=== PATIENT | male | born 1960 | race Caucasian/White ===

== ENCOUNTER 2016-07-01 11:17 | Outpatient (CLI) | payer OTHER ==
[2016-07-01 11:37] LABS: BASOPHILS # (AUTO) 0.1 K/uL (0-0.2); BASOPHILS % (AUTO) 1.4 % (0.0-3.0); EOSINOPHILS # (AUTO) 0.3 K/ul (0.0-0.7); EOSINOPHILS % (AUTO) 3.8 % (0.0-7.0); HEMATOCRIT 40.9 % (42.0-52.0); HEMOGLOBIN 13.7 g/dl (14.0-18.0); IMMATURE GRANULOCYTE % (AUTO) 0.4 % (0.0-5.0); LYMPHOCYTES # (AUTO) 3.2 K/uL (0.60-3.4); LYMPHOCYTES % (AUTO) 40.2 (10.0-50.0); MEAN CORPUSCULAR HEMOGLOBIN 30.6 pg (27.0-31.0); MEAN CORPUSCULAR HGB CONC 33.5 (31.8-35.4); MEAN CORPUSCULAR VOLUME 91.3 fl (80.0-94.0); MONOCYTES # (AUTO) 0.7 K/uL (0.4-2.0); MONOCYTES % (AUTO) 9.2 (0-10); NEUTROPHILS # (AUTO) 3.6 K/ul (2.0-6.9); PLATELET COUNT 235 10^3/uL (140-440); RED BLOOD COUNT 4.48 10^6/ul (4.70-6.10); WHITE BLOOD COUNT 7.92 K/ul (4.2-10.2)
[2016-07-01 11:38] LABS: BILIRUBIN,URINE Negative (NEGATIVE); KETONES,URINE Negative (NEGATIVE); LEUKOCYTE ESTERASE ,URINE Negative (NEGATIVE); NITRITE,URINE Negative (NEGATIVE); PROTEIN,URINE Negative (NEGATIVE); URINE, BLOOD Negative (NEGATIVE)
[2016-07-01 11:39] LABS: ADD URINE MICROSCOPIC NO
--- NOTE | 2016-07-01 12:02 | DI ---
EXAM: Two views of the chest. History: Chest pain. Comparison: Chest radiograph 08/14/2014 Findings: Heart size is normal. No focal consolidation. No appreciable pleural fluid and no pneum othorax. No acute osseous abnormalities. Impression: No acute cardiopulmonary process.
[2016-07-01 12:34] LABS: ALBUMIN 4.1 g/dL (3.4-5.0); ALBUMIN/GLOBULIN RATIO 1.11; BILIRUBIN,DIRECT 0.25 mg/dL (0.00-0.30); BILIRUBIN,TOTAL 0.6 mg/dL (0.00-1.20); BUN/CREATININE RATIO 9.9; CALCIUM 9.3 mg/dL (8.2-10.2); CHOL/HDL RATIO 4.3 (4.5-6.4); CREATININE 1.01 mg/dL (0.60-1.10); TOTAL PROTEIN 7.8 g/dL (6.4-8.2)
== END 2016-07-01 11:18 | disposition home or self-care (01) ==
LOC: LAB 11:17
PROVIDERS: ATTEND Nurse Practitioner
DX: R73.09 Other abnormal glucose (principal); R07.9 Chest pain, unspecified; E55.9 Vitamin D deficiency, unspecified; E78.2 Mixed hyperlipidemia; F32.9 Major depressive disorder, single episode, unspecified; I10 Essential (primary) hypertension; M25.551 Pain in right hip; M51.9 Unspecified thoracic, thoracolumbar and lumbosacral intervertebral disc disorder; M87.059 Idiopathic aseptic necrosis of unspecified femur
CPT/HCPCS: 36415; 80053; 80061; 81001; 82248; 82306; 83036; 84100; 84443; 85025

== ENCOUNTER 2017-08-06 08:46 | Outpatient (CLI) | payer OTHER | END 2017-08-06 08:47 | disposition home or self-care (01) | LOC: LAB 08:46 | PROVIDERS: ATTEND Nurse Practitioner | DX: E55.9 Vitamin D deficiency, unspecified (principal); E78.2 Mixed hyperlipidemia; I10 Essential (primary) hypertension; M25.551 Pain in right hip; M47.27 Other spondylosis with radiculopathy, lumbosacral region; R53.83 Other fatigue; Z12.5 Encounter for screening for malignant neoplasm of prostate; F17.210 Nicotine dependence, cigarettes, uncomplicated; Z23 Encounter for immunization | CPT/HCPCS: 36415; 80053; 80061; 81001; 85025 ==

== ENCOUNTER 2018-07-05 10:20 | Outpatient (CLI) | payer OTHER ==
--- NOTE | 2018-07-05 13:05 | DI ---
Exam: Three views of the lumbar spine. Comparison: 07/27/2013. Reason for exam: Lumbar disc displacement. FINDINGS: Similar appearing grade 1 anterior listhesis L3 on L4 not significantly changed from previ ous imaging. No new vertebral body height loss is seen. There is preservation of the lumbar lordoti c curve. Impression: No acute fracture is seen within the lumbar spine. Similar appearing grade 1 anterior listhesis of L3 on L4 not significantly changed from previous imag ing
--- NOTE | 2018-07-06 12:20 | MRI ---
EXAM: Lumbar spine MRI without contrast. HISTORY: Lumbar disc displacement. Degenerative disc disease. COMPARISON: Lumbar spine radiographs 07/05/2098 lumbar spine MRI 06/14/2013. TECHNIQUE: Multiplanar, multisequence MR images were acquired of the lumbar spine without contrast. FINDINGS: Five non-rib bearing lumbar vertebra are present. Conus medullaris ends at L1-2 and is no rmal morphology, signal intensity. There is minor lumbar dextroscoliosis centered at L3-4 and there is 3 mm degenerative anterolisthesis of L3 on L4 and mild disc space narrowing L3-4 and L5-S1. The l umbar vertebra are normal in height and intrinsic bone marrow signal. Small ventral osteophytes are present at L3-4 and there is disc desiccation at L3-4 and mild disc space narrowing at L3-4 and mild disc space narrowing disc desiccation at L5-S1. The partially visualized liver, spleen and kidneys are unremarkable. There are no paravertebral mass es. L1-2: There is a minimal probably physiologic disc bulge with endplate osteophytes that minimally na rrows the inferior neural foraminal bilaterally. There is no central canal stenosis. L2-3: There is a mild disc bulge that is asymmetric to the right and mild bilateral hypertrophic fac et arthropathy and ligamentum flavum hypertrophy. This causes mild bilateral foraminal stenosis. Th ere is no central canal stenosis. L3-4: There is anterolisthesis of L3 on L4 and there is a mild disc bulge/pseudo disc bulge that is asymmetric to the right with right lateral endplate osteophytes. Moderate left and moderately severe right hypertrophic facet arthropathy and ligamentum flavum hypertrophy and a small right facet effus ion are present. There is prominent dorsal epidural fat. These findings cause mild bilateral forami nal stenosis, greater on the right. There is no central canal stenosis. AP diameter of the thecal s ac is 9.8 mm. L4-5: There is a minor disc bulge with endplate osteophytes and moderate left and mild to moderate r ight hypertrophic facet arthropathy and ligamentum flavum hypertrophy with small left and tiny right facet effusions. There is mild right and mild to moderate left neural foraminal stenosis with encroa chment on the traversing left L4 nerve. L5-S1: There is a small right posterior disc bulge with endplate osteophytes and a superimposed righ t paracentral disc protrusion that effaces the right anterior subarachnoid space and may contact the descending right S1 nerve. Minor bilateral facet arthropathy and ligamentum flavum hypertrophy is pr esent and there is mild stenosis at the entry to the right neural foramen. IMPRESSION: 1. Mild lumbar degenerative spondylosis and mild to moderate facet arthropathy without spinal stenos is. 2. Small right paracentral disc protrusion L5-S1 that may contact the right S1 nerve. 3. Mild to moderate left L4-5 neural foraminal stenosis.
== END 2018-07-05 10:21 | disposition home or self-care (01) ==
LOC: RAD 10:20
PROVIDERS: ATTEND Pain Medicine Interventional Pain Medicine
DX: M51.26 Other intervertebral disc displacement, lumbar region (principal); M51.27 Other intervertebral disc displacement, lumbosacral region; M51.36 Other intervertebral disc degeneration, lumbar region; M51.37 Other intervertebral disc degeneration, lumbosacral region; M43.16 Spondylolisthesis, lumbar region; M47.816 Spondylosis without myelopathy or radiculopathy, lumbar region; M47.817 Spondylosis without myelopathy or radiculopathy, lumbosacral region; M48.061 Spinal stenosis, lumbar region without neurogenic claudication

== ENCOUNTER 2018-08-23 07:36 | Outpatient (CLI) | payer OTHER | END 2018-08-23 07:37 | disposition home or self-care (01) | LOC: LAB 07:36 | PROVIDERS: ATTEND Nurse Practitioner | DX: E55.9 Vitamin D deficiency, unspecified (principal); E78.2 Mixed hyperlipidemia; I10 Essential (primary) hypertension; M25.559 Pain in unspecified hip; M54.5 Low back pain; M79.2 Neuralgia and neuritis, unspecified; N52.9 Male erectile dysfunction, unspecified; R53.83 Other fatigue; F17.210 Nicotine dependence, cigarettes, uncomplicated; Z12.5 Encounter for screening for malignant neoplasm of prostate; Z79.899 Other long term (current) drug therapy | CPT/HCPCS: 36415; 80053; 80061; 81001; 82306; 83036; 84443; 85025 ==

== ENCOUNTER 2018-09-15 13:12 | Outpatient (CLI) | END 2018-09-15 13:13 | disposition home or self-care (01) | LOC: LAB 13:12 | PROVIDERS: ATTEND Nurse Practitioner | DX: D64.9 Anemia, unspecified (principal); R53.83 Other fatigue | CPT/HCPCS: 36415; 82607; 82746; 83540; 85025 ==